=== PATIENT | female | born 1995 | race Caucasian/White ===

== ENCOUNTER 2021-02-23 10:22 | Outpatient (REF) | payer OTHER, SELFPAY ==
[2021-02-23 12:08] LABS: MANUAL DIFF FLAG NO
[2021-02-23 12:16] LABS: Basophils Percent Auto 0.2 % (0-2); Eosinophils Absolute Auto 0.1 X10*3/uL (0.0-0.4); Eosinophils Percent Auto 0.6 % (0-4); Hematocrit 41.5 % (37.0-47.0); Hemoglobin 14.3 g/dl (12.0-16.0); Imm Gran Abs Auto 0.08 X10*3/uL (0.00-0.03); Imm Gran Pct Auto 0.6 % (0.0-0.4); Lymphocytes Absolute Auto 3.4 X10*3/uL (1.2-4.9); Lymphocytes Percent Auto 24.8 % (20-40); Mean Corpuscular HGB Conc 34.5 g/dl (31.0-35.0); Mean Corpuscular Hemoglobin 32.6 pg (27.0-33.0); Mean Corpuscular Volume 94.7 fL (80.0-98.0); Mean Platelet Volume 9.2 fL (9.4-12.3); Monocytes Percent Auto 7.2 % (2-11); Neutrophils Absolute Auto 9.03 x10*3/uL (2.0-8.3); Neutrophils Percent Auto 66.6 % (45-73); Platelet Count 438 X10*3/uL (160-400); Red Blood Count 4.38 X10*6/uL (4.20-5.50); Red Cell Distribution Width 12.1 % (11.0-16.0); White Blood Count 13.6 X10*3/uL (4.8-10.8)
[2021-02-23 12:41] LABS: Alanine Aminotransferase 10 U/L (0-31); Albumin Level 4.5 g/dL (3.5-5.0); Alkaline Phosphatase 58 U/L (39-117); Anion Gap 11 (12-20); Aspartate Amino Transferase 17 U/L (5-31); Bilirubin Total 0.3 mg/dL (0.0-1.0); Blood Urea Nitrogen 6 mg/dL (9-16); Calcium 9.4 mg/dL (8.4-10.2); Carbon Dioxide 25 mmol/L (22-29); Chloride 106 mmol/L (96-108); Cholesterol 148 mg/dL; Estimated Glomerular Filt Rate > 60; Glucose Fasting 89 mg/dL (60-99); HDL Cholesterol 51 mg/dL; LDL Cholesterol Calculated 85 mg/dl; Potassium 3.9 mmol/L (3.3-5.1); Sodium 138 mmol/L (135-145); Total Protein 7.2 g/dL (6.5-8.0); Triglycerides 61 mg/dL
[2021-02-23 13:02] LABS: Vitamin D 25-OH Total 6.3 ng/mL (>30)
[2021-02-23 13:03] LABS: TSH reflex Free T4 (Prenatal) 0.38 uIU/mL (0.32-4.0)
[2021-02-23 13:34] LABS: Folate 15.7 ng/mL (> or = 4.0); Vitamin B12 581 pg/mL (200-900)
[2021-02-23 13:51] LABS: Free T4 (Free Thyroxine) 1.18 ng/dL (0.71-1.85)
== END 2021-02-23 10:23 | disposition home or self-care (01) ==
LOC: HO.LAB 10:22
PROVIDERS: PCP Internal Medicine; Visit Provider Advanced Practice Midwife
DX: O26.891 Other specified pregnancy related conditions, first trimester (principal); F41.8 Other specified anxiety disorders; R00.0 Tachycardia, unspecified; R10.13 Epigastric pain; R63.6 Underweight; I34.1 Nonrheumatic mitral (valve) prolapse; R00.2 Palpitations
CPT/HCPCS: 36415; 80053; 80061; 82306; 82607; 82746; 84439; 85025; 99202

== ENCOUNTER → 2021-02-27 09:56 | Outpatient (BNVA) | payer OTHER, SELFPAY | PROVIDERS: PCP Internal Medicine; Visit Provider Advanced Practice Midwife ==

== ENCOUNTER → 2021-03-27 09:54 | Outpatient (BNVA) | payer OTHER, SELFPAY | PROVIDERS: PCP Internal Medicine; Visit Provider Advanced Practice Midwife | DX: R00.2 Palpitations (principal); R00.0 Tachycardia, unspecified; R29.91 Unspecified symptoms and signs involving the musculoskeletal system; Z34.90 Encounter for supervision of normal pregnancy, unspecified, unspecified trimester | CPT/HCPCS: 93005; 99202; 99212 ==

== ENCOUNTER → 2021-03-29 10:34 | Outpatient (REF) | payer OTHER, SELFPAY ==
--- NOTE | 2021-03-29 10:37 | CA_ITS ---
Transthoracic Echocardiogram Patient (Last, First, Middle): Elodia Roberts Y Gender: Female Date of : 1995 Age: 25 Procedure Date: 03/29/2021 Procedure Type: Transthoracic Echocardiogram Location: OP Height: 157.48 cm Weight: 47.17 kg BSA: 1.45 m2 Heart Rate: bpm BP: 120 / 80 mmHg Molding Machine Tender: ROBSON Juarez MD: Jose Carlos Pearson MD Plaster Patternmaker: Humphrey Almeida MD Symptoms: I34.1 - Nonrheumatic mitral (valve) prolapse Study Quality: Good ECG Rhythm: Sinus Conclusions: - 1. Normal biventricular systolic function 2. Bileaflet mitral valve prolapse of moderate degree with trace mitral regurgitation 3. Normal RV systolic pressure 4. No pericardial effusion Findings Left Ventricle Normal left ventricular size, thickness, and systolic function. The visually estimated ejection fraction is between 60-65%. Spectral Doppler is indicative of a normal filling pattern. Right Ventricle Normal right ventricular cavity size and systolic function. Atria Both atria are normal in size. There is no evidence of interatrial shunt. Aortic Valve Normal aortic valve structure and function. There is no aortic valve stenosis. There is no aortic valve regurgitation. 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 There is mild anterior and posterior mitral leaflet thickening. There is moderate anterior mitral leaflet prolapse and moderate posterior mitral leaflet prolapse. There is trace mitral valve regurgitation. There is no mitral valve stenosis. Pulmonic Valve The pulmonic valve is likely normal. There is trace pulmonic valve regurgitation. Tricuspid Valve Normal tricuspid valve structure. There is trace tricuspid valve regurgitation. The right ventricular systolic pressure is normal. The right ventricular systolic pressure is 26 mmHg. Normal right atrial pressure. There is no evidence of pulmonary hypertension. Great Vessels All visible segments of the aorta are normal in size. The pulmonary artery was not well visualized. Venous The inferior vena cava is normal in size and collapses greater than 50% with inspiration. Pericardium/Pleural There is no evidence of pericardial effusion. Prior Study Comparison No significant change compared to prior study dated: 02/17/2019. Measurements 2D Linear Measurements IVSd: 0.70 0.6-0.9/0.6-1.0 cm LVIDd: 4.85 3.9-5.3/4.2-5.9 cm LVIDd Index: 3.34 2.4-3.2/2.2-3.1 cm/m2 LVIDs: 3.01 2.0-3.6 cm LVPWd: 0.70 0.7-1.1 cm Ao Root: 2.90 2.1-3.5 cm LA Diam: 3.40 2.7-3.8/3.0-4.0 cm LAIDs Index: 2.34 1.5-2.3 cm/m2 LV Mass: 134.77 67-162/88-224 g LV Mass Index: 92.95 43-95/49-115 g/m2 LVOT Diam: 2.10 3.0+(-)1.3 cm 2D Systolic Function EF 4C: 60.30 >55% EF 2C: 51.30 >55% EF BiP: 55.60 >55% Mitral Valve E'Lateral: 9.68 E'Medial: 8.81 Aortic Valve AoV Pk Heri: 1.18 AoV Mn Heri: 0.89 AoV VTI: 0.27 AoV Pk Grad: 6.00 Aov Mn Grad: 3.00 PINKY Cont.VTI: 2.14 LVOT LVOT Pk Heri: 0.82 LVOT Mn Heri: 0.57 LVOT VTI: 0.17 LVOT Pk Grad: 3.00 LVOT Mn Grad: 1.00 LVOT Diam: 2.10 LVOT Area: 3.46 Diastolic Function E'Medial: 8.81 E' Laterial: 9.68 Right Ventricle TAPSE (mm): 1.57 TVS' Heri: 9.25 Tricuspid Valve TR Pk Heri: 2.39 TR Pk Grad: 23.00 RA Press: 3.00 RVSP: 26.00 Great Vessels Aorta Ao Root-2D: 2.90 2.0-3.7 cm Ao Asc: 2.70 2.1-3.4 cm Ao Arch: 1.70 Updated in Other Vendor System with Status of Final Humphrey Almeida MD electronically signed on 03/29/2021 1:59:27 PM with status of Final
== END ==
LOC: HO.CARD 10:34
PROVIDERS: PCP Internal Medicine; Visit Provider Advanced Practice Midwife
DX: I34.1 Nonrheumatic mitral (valve) prolapse (principal)
CPT/HCPCS: 93306

== ENCOUNTER → 2021-04-06 08:44 | Outpatient (BNVA) | payer OTHER, SELFPAY | PROVIDERS: PCP Internal Medicine; Visit Provider Advanced Practice Midwife ==

== ENCOUNTER → 2021-04-18 10:57 | Outpatient (REF) | payer OTHER, SELFPAY ==
--- NOTE | 2021-04-18 11:01 | HM_ITS ---
Total monitoring time 2 days, 23 hours. Underlying rhythm is sinus. Minimum heart rate 58/Min. Maximum 160/Min. Average 93/Min. About 33% of the time, right greater than 100/Min. No atrial fibrillation or flutter or AV blocks or pauses. Very rare supraventricular ectopy with minimal burden. Very rare ventricular ectopy with minimal burden; 2 couplets. Rapid/fast heartbeat noted by patient associated with sinus tachycardia. MTDD
== END ==
LOC: HO.CARD 10:57
PROVIDERS: Visit Provider Internal Medicine
DX: R00.2 Palpitations (principal)
CPT/HCPCS: 93242

== ENCOUNTER → 2021-05-15 14:16 | Outpatient (BNVA) | payer OTHER, SELFPAY | PROVIDERS: PCP Internal Medicine; Referring Provider Internal Medicine; Visit Provider Internal Medicine | DX: R00.0 Tachycardia, unspecified (principal); R29.91 Unspecified symptoms and signs involving the musculoskeletal system; I34.1 Nonrheumatic mitral (valve) prolapse; Z33.1 Pregnant state, incidental | CPT/HCPCS: 93005; 99212 ==

== ENCOUNTER → 2021-08-15 12:47 | Outpatient (BNVA) | payer OTHER, SELFPAY | PROVIDERS: PCP Internal Medicine; Referring Provider Internal Medicine; Visit Provider Internal Medicine | DX: O99.413 Diseases of the circulatory system complicating pregnancy, third trimester (principal); I34.1 Nonrheumatic mitral (valve) prolapse; O26.893 Other specified pregnancy related conditions, third trimester; R29.91 Unspecified symptoms and signs involving the musculoskeletal system; R00.0 Tachycardia, unspecified; Z3A.00 Weeks of gestation of pregnancy not specified | CPT/HCPCS: 93005; 99212 ==

== ENCOUNTER → 2022-10-19 13:55 | Outpatient (BNVA) | payer OTHER, SELFPAY | PROVIDERS: PCP Internal Medicine; Visit Provider Nurse Practitioner Family | DX: Z01.810 Encounter for preprocedural cardiovascular examination (principal); I34.1 Nonrheumatic mitral (valve) prolapse; I34.0 Nonrheumatic mitral (valve) insufficiency; I49.3 Ventricular premature depolarization; Q67.6 Pectus excavatum; R00.0 Tachycardia, unspecified; E55.9 Vitamin D deficiency, unspecified | CPT/HCPCS: 93005; 99212 ==

== ENCOUNTER → 2022-10-22 12:54 | Outpatient (REF) | payer OTHER, SELFPAY | LOC: HO.CARD 12:54 | PROVIDERS: PCP Internal Medicine; Visit Provider Nurse Practitioner Family | DX: Z01.810 Encounter for preprocedural cardiovascular examination (principal); I34.0 Nonrheumatic mitral (valve) insufficiency; I34.1 Nonrheumatic mitral (valve) prolapse | CPT/HCPCS: 93306 ==

== ENCOUNTER 2023-12-25 14:09 | Outpatient (AMB) | payer OTHER, SELFPAY ==
[2023-12-25 14:10] VITALS: BP 100/62; PULSE 83; BMI 21.9
--- NOTE | 2023-12-25 14:10 | MHC.OFFVIS ---
Vital Signs 12/25/23 14:10 Height 5 ft 2 in Weight 119 lb 7.849 oz BMI 21.9 BP 100/62 Blood Pressure Location Lt brachial Position Sitting Pulse 83 Intake Visit Reasons: 1 year follow-up Fermenter Required: No Accompanied by: Self / Same As Patient Allergies No Known Allergies [No Known Allergies*] Allergy (Verified 10/19/22 13:59) Medication List - Last Reconciled 12/25/23 by Jose Carlos Perason MD etonogestrel (Nexplanon) subdermal DAILY hydroxyzine HCl 25 mg PO BEDTIME PNV,calcium 88-toyo-ybyme acid 27 mg iron- 1 mg ( Vitamins Plus Low Iron) 1 tab PO DAILY prazosin 1 mg PO BEDTIME pyridoxine (vitamin B6) (Vitamin B-6) 25 mg PO TID PRN trazodone 100 mg PO BEDTIME PRN venlafaxine ER 37.5 mg PO DAILY Ventolin HFA 90 mcg/actuation (albuterol sulfate) 2 puffs inhalation Q6H PRN NS HPI Comments Details: Elodia returns for follow-up. In the past, she has been seen in the setting of tachycardia and she was also recommend that time. However, per history from patient, she has had rapid heartbeats for more than a decade. Otherwise, history of hypermobile joints and frequent knee dislocations, shoulder dislocation extra. She also has pectus excavatum. She was in fact sent to the Genetics Clinic at [facility] but it seems that testing was essentially unremarkable. Otherwise, patient states she generally doing fine. Slight dizziness off and on but she is also having lowish blood pressures and also taking many medications that can make her feel dizzy. With regard to family history, she does not know much. Brother has schizophrenia. She is mostly home these days taking care of her child. 2 years old and doing okay. [facility] Medical History Depression with anxiety Epigastric pain MVP (mitral valve prolapse) Tachycardia Underweight Vitamin D deficiency Surgical History No pertinent past surgical history Family History Father Heroin addiction Mother Heroin addiction Social History Alcohol intake: never Patient Tobacco Use Status: Never used Tobacco Substance Use Type: Marijuana Sexual orientation: Straight/Heterosexual Gender identity: Female Review of Systems Const Denies chills, Denies fatigue, Denies fever(s), Denies weight gain and Denies weight loss ENT Denies dizziness Card Denies chest pain, Denies leg edema, Denies lightheadedness, Denies palpitations, Reports dyspnea on exertion, Denies orthopnea and Denies other Resp Denies cough and Reports dyspnea on exertion GI Denies hematochezia and Denies change in stool character Musc Denies abnormal gait, Denies muscle weakness, Denies numbness, Denies radiating pain into limb and Denies tingling Neuro Denies abnormal gait, Denies dizziness, Denies numbness and Denies tingling Endo Denies fatigue and Denies palpitations Physical Exam Vital Signs: Last Vital Signs Pulse 83 12/25/23 14:10 BP 100/62 12/25/23 14:10 BMI result Body Mass Index 21.9 Const General: comfortable and no acute distress Orientation/consciousness: patient oriented x3 HEENT Other: Unremarkable Head: Yes normal to inspection Neck Neck: Yes normal visual inspection Chest Chest palpation & inspection: normal inspection of the chest Resp Auscultation: clear to auscultation bilaterally Cardio Palpation: normal PMI Heart sounds: S1 normal heart sound present, S2 normal heart sound present, no gallops, no murmurs and no rubs GI Palpation (GI): Soft to palpation Back/Spine/Pelvis Other: unremarkable Skin General skin exam: no rashes or lesions noted Neuro General: patient oriented x3 Extrem General: Yes normal to inspection Psych Mental Status: mental status grossly normal Office Procedures EKG Details: EKG with underlying sinus rhythm at 83/Min; left atrial enlargement; rightward axis; no significant ST-[place] 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 Per last echocardiogram in 2022, low normal LVEF, 55%; moderate anterior and posterior mitral leaflet prolapse with trace regurgitation. Normal ascending aortic size. Previous Holter shows underlying sinus tachycardia with an average rate of 93/Min. She was also at that time. With regard to the mitral valve prolapse itself, no specific management for now as she has no significant regurgitation. We can follow that up on echocardiogram. No specific management for the sinus tachycardia either. Today's heart rate in fact seems to be well in the normal range. With regard to question of Jannette-Danlos or other forms of connective tissue disease like Marfan, we can refer her to [facility] in [place] but she could not go there because of lack of transport. She still has the same problem. Any case, we also referred her to Genetics in [facility] and based on testing, no specific gene is identified. Otherwise, reassurance and we will follow her up in 1 year. She can call us with any concerns in the interim. She agrees. Total time spent including review of data, counseling, documentation, coordination of care-32 minutes. Orders: Orders CA echo transthoracic complete 1 Year I34.0 - Nonrheumatic mitral (valve) insufficiency Coding Level of Care Code Est Pt Level 4 (68416) Diagnoses Marfanoid habitus R29.91 Sinus tachycardia R00.0 MVP (mitral valve prolapse) I34.1 CPT Codes EKG - CPT: 31485-[id number], Complete ([id number])
== END 2023-12-25 14:36 | disposition home or self-care (01) ==
PROVIDERS: PCP Internal Medicine; Visit Provider Internal Medicine
DX: R29.91 Unspecified symptoms and signs involving the musculoskeletal system (principal); R00.0 Tachycardia, unspecified; I34.1 Nonrheumatic mitral (valve) prolapse
CPT/HCPCS: 93010; 99214

== ENCOUNTER → 2023-12-25 14:09 | Outpatient (BNVA) | payer OTHER, SELFPAY | PROVIDERS: PCP Internal Medicine; Visit Provider Internal Medicine | DX: R29.91 Unspecified symptoms and signs involving the musculoskeletal system (principal); R00.0 Tachycardia, unspecified; I34.1 Nonrheumatic mitral (valve) prolapse | CPT/HCPCS: 93005; 99212 ==

== ENCOUNTER 2024-03-16 11:38 | Outpatient (AMB) | payer OTHER, SELFPAY ==
--- NOTE | 2024-03-16 12:33 | MHC.PC.OV ---
Vital Signs 03/16/24 12:34 Height 5 ft 2 in Weight 125 lb BMI 22.9 BP 100/60 Blood Pressure Location Lt brachial Position Sitting Pulse 91 Pulse Source Pulse Oximeter Pulse Oximetry (%) 99 Oxygen Delivery Method Room Air Intake Visit Reasons: Asthma/ chest congestion Intake Note: Pt is here today c/o asthma, request refill on her inhaler Allergies No Known Allergies [No Known Allergies*] Allergy (Verified 03/16/24 12:45) Medication List - Last Reconciled 03/16/24 by Nery Reid MD aripiprazole 5 mg PO DAILY clonidine HCl 0.1 mg PO BID etonogestrel (Nexplanon) subdermal DAILY trazodone 100 mg PO BEDTIME PRN Ventolin HFA 90 mcg/actuation (albuterol sulfate) 2 puffs inhalation Q6H PRN NS Tobacco use date assessed: 03/16/24 Dental Screening Dental Screen Date: 03/16/24 Did you have a dental visit in the last 12 months?: Yes Did you have a dental problem in the last 6 months where you did not have access to dental care?: Yes Was dental information given to patient?: Patient has dentist HPI Asthma/ chest congestion HPI Details 28-year-old lady here today complaining of cough occasionally productive of white phlegm accompanied by wheezing which has been present now for the last several days. Patient has history of mild intermittent asthma, ran out of her albuterol inhaler several days ago, requests refill. Reports occasional pain on deep breathing, which she attributes to her chest wall deformity. She has also been having recurrent low back pain, worse after giving . Has taken [id number]-kwt-srmsbhy NSAIDs and Tylenol which affords only temporary relief. [facility] Medical History (Updated 03/16/24 @ 13:05 by Nery Reid MD) Chronic low back pain Pectus excavatum Vitamin D deficiency Depression with anxiety MVP (mitral valve prolapse) Surgical History No pertinent past surgical history Family History Father Heroin addiction Substance use disorder Mother Heroin addiction Substance use disorder Social History Housing: House Alcohol intake: never Patient Tobacco Use Status: Never used Tobacco e-Cigarette/Vaping Use: Never Used Substance Use Type: Marijuana service: No Current occupational status: unemployed Sexual orientation: Straight/Heterosexual Gender identity: Female Cognitive needs: No Hearing needs: No Vision needs: Yes Questionnaire Thrive Questionnaire Date Thrive assessed: 02/27/24 I am a: Patient What is your living situation today?: I have a steady place to live Within the past 12 months, did the food you bought not last and you didn't have the money to get more?: Never true Within the past 12 months, did you worry whether your food would run out before you got money to buy more?: Never true Do you have trouble paying for medicines?: No Do you have trouble getting transportation to medical appointments?: No Do you have trouble paying your heating and electricity bill?: No Do you have trouble taking care of your child, family member or friend?: No Do you have trouble with day-to-day activities such as bathing, preparing meals, shopping, managing finances, etc.?: No Are you currently unemployed and looking for a job?: I choose not to answer this question Are you interested in more education?: I choose not to answer this question Please select the resources that you would like help with: None Currently or been in a relationship where the following occur: No concerns reported THRIVE Score: 0 ACT Questionnaire In the past 4 weeks, how much of the time did your asthma keep you from getting as much done at work, school or at home?: A little of the time During the past 4 weeks, how often have you had shortness of breath?: 1-2 times a week During the past 4 weeks, how often did your asthma symptoms wake you up at night or earlier than usual in the morning?: Once or twice per week During the past 4 weeks, how often have you had to use your rescue inhaler or nebulizer medication?: 2-3 times a week How would you rate your asthma control during the past 4 weeks?: Somewhat controlled ACT Interpretation: Positive Score: 18 Review of Systems Const Denies chills, Denies fatigue, Denies fever(s), Denies headache(s), Denies lethargy and Denies poor appetite ENT Denies facial pain, Denies headache(s), Denies nasal congestion, Denies post nasal drip, Denies sinus pain and Denies sore throat Card Denies chest pain, Denies lightheadedness, Denies palpitations, Reports dyspnea on exertion and Denies orthopnea Resp Reports as per HPI, Denies pain on inspiration and Reports dyspnea on exertion GI Reports no additional complaints Musc Reports as per HPI, Denies numbness, Denies radiating pain into limb and Denies stiffness Neuro Denies headache(s) and Denies numbness Endo Denies fatigue and Denies palpitations Aller/Immun Reports no additional complaints Physical exam (Primary Care) Vital Signs: Last Vital Signs Pulse 91 03/16/24 12:34 BP 100/60 03/16/24 12:34 Pulse Ox 99 03/16/24 12:34 Oxygen Delivery Method Room Air 03/16/24 12:34 BMI result Body Mass Index 22.9 Tobacco/Smoking Status: Tobacco use Status Tobacco use date assessed 03/16/24 03/16/24 12:36 Patient Tobacco Use Status Never used Tobacco 03/16/24 12:36 e-Cigarette/Vaping Use Never Used 03/16/24 12:36 Thrive Assessment: Date of Thrive Assessment Date Thrive assessed 02/27/24 03/16/24 12:36 Currently or been in a relationship where the following occur: No concerns reported Const General: comfortable, no acute distress and alert Orientation/consciousness: patient oriented x3 HENMT Ears: external ears normal, TM's normal bilaterally and EAC's normal General nose exam: Normal external nose present and No nasal discharge present Mouth: Normal oral and palatal mucosa present, oropharynx normal and moist mucous membranes Eyes General: appearance normal, both eyes and all related structures Neck Neck: Yes full ROM, Yes no lymphadenopathy and Yes supple Chest Chest palpation & inspection: abnormal inspection of the chest (Pectus excavatum) Resp Effort & Inspection: normal respiratory effort and able to speak in complete sentences Auscultation: clear to auscultation bilaterally Cardio Rate: regular rate Rhythm: regular rhythm Heart sounds: S1 normal heart sound present and S2 normal heart sound present GI Palpation (GI): Soft to palpation, nontender and no masses Auscultation: normal bowel sounds Back/Spine/Pelvis Thoracic/Lumbar Spine: straight leg raise negative bilaterally and paraspinal muscle tenderness bilaterally in the lower lumbar Skin General skin exam: no rashes or lesions noted Neuro General: patient oriented x3, gait normal, tone normal, moves all extremities, Normal light touch and pain sensation and no focal motor deficits Cranial nerves: Yes CN's II-XII intact bilaterally Cognition (Neuro): normal cognition Extrem General: Yes full ROM, Yes no joint enlargement, Yes no clubbing, cyanosis or edema and Yes no calf tenderness Coding Level of Care Code Est Pt Level 4 (37586) Diagnoses Pectus excavatum Q67.6 Difficulty breathing R06.89 Persistent cough for 3 weeks or longer R05.3 Chronic bilateral low back pain without sciatica M54.50; G89.29 Back pain laterality: bilateral Sciatica presence: without sciatica Additional Codes Asthma Control Questionnaire - ACT Interpretation: Positive ([id number]) Assessment & Plan Assessment & Plan (1) Pectus excavatum: Code(s): Q67.6 - Pectus excavatum Category: Medical Plan: Complains of difficulty with deep breathing, with occasional sharp pain on inspiration. Ordered pulmonary function test see if there is any restrictive component caused by her chest wall defect (2) Difficulty breathing: Code(s): R06.89 - Other abnormalities of breathing Plan: PFT ordered (3) Persistent cough for 3 weeks or longer: Code(s): R05.3 - Chronic cough Plan: Refill sent on her albuterol inhaler to use as directed. Call if no improvement of symptoms after 3 days (4) Chronic low back pain: Code(s): M54.50 - Low back pain, unspecified; G89.29 - Other chronic pain Category: Medical Qualifiers: Back pain laterality: bilateral Sciatica presence: without sciatica Qualified Code(s): M54.50 - Low back pain, unspecified; G89.29 - Other chronic pain Plan: Referred for physical therapy Orders: Orders PFT pulmonary function test 03/16/24 Q67.6 - Pectus excavatum, R05.3 - Chronic cough, R06.89 - Other abnormalities of breathing PT Evaluation and Treatment 03/16/24 G89.29 - Other chronic pain, M54.50 - Low back pain, unspecified Medications: New albuterol sulfate 90 mcg/actuation 2 puffs inhalation Q6H PRN 8.5 grams 0RF shortness of breath or wheezing
[2024-03-16 12:34] VITALS: BP 100/60; PULSE 91; O2SAT 99; BMI 22.9
== END 2024-03-16 13:04 | disposition home or self-care (01) ==
PROVIDERS: PCP Internal Medicine; Visit Provider Internal Medicine
DX: Q67.6 Pectus excavatum (principal); R06.89 Other abnormalities of breathing; R05.3 Chronic cough; M54.50 Low back pain, unspecified; G89.29 Other chronic pain

== ENCOUNTER → 2024-03-16 11:38 | Outpatient (BNVA) | payer OTHER, SELFPAY | PROVIDERS: PCP Internal Medicine; Visit Provider Internal Medicine | DX: Q67.6 Pectus excavatum (principal); R06.89 Other abnormalities of breathing; R05.3 Chronic cough; M54.50 Low back pain, unspecified; G89.29 Other chronic pain | CPT/HCPCS: 96160; 99212 ==

== ENCOUNTER 2024-04-28 13:55 | Outpatient (RCR) | payer OTHER, SELFPAY ==
--- NOTE | 2024-04-28 14:43 | MHC.PT.EP ---
[facility] [place] [facility] [place] [facility] [place] Office [address] [place] [address] [phone] F: [phone] F: [phone] F: [phone] F: [phone] Physical Therapy Plan of Care Date of Evaluation: 04/28/24 Date of Surgery: n/a Diagnosis: low back pain Assessment: Patient is a 28 year old female presenting to PT with complaints of pain in her low back. Pt reports onset of pain began about 2 years ago shortly after having her daughter. She presents today with impairments in pain, ROM, hip strength, core strength, posture. 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 Pt expresses group home goal of reducing pain, and is motivated to work towards this in PT. Clinical presentation today is most consistent with signs and sx associated with low back pain and pt will benefit from skilled PT 2 week x 4 weeks to address the following problems and impairments noted upon evaluation: pain, ROM, hip strength, core strength, posture. These problems limit the patient with the following functional activities: ambulating, stair negotiation, lifting, ADLs. The prescribed treatment plan of care is medically necessary. Co-morbidities of mitral valve prolapse, depression, anxiety were identified and taken into considerations of plan of care. Pt was educated on HEP, role of PT, prognosis, POC. Frequency and Duration: The patient will be seen 2 x week x 4 weeks Short Term Goals: Pt will demonstrate no pain at rest in 2 weeks. Pt will demonstrate improved hip MMT strength by 1/3 grade in 2 weeks. Pt will demonstrate ability to move through available lumbar ROM with out pain in 2 weeks. Rental Coordinator Goals: Pt will demonstrate improved Peña score by 10% in 4 weeks for improved functional mobility. Pt will demonstrate ability to ambulate community distances with min to no pain in 4 weeks for improved access to her community. Pt will demonstrate ability to negotiate stairs with min to no pain in 4 weeks for return to PLOF. Treatment Plan: Modalities to reduce pain, spasms and effusion. Manual therapy to restore motion and function. Therapeutic exercise to improve strength and flexibility. Neuromuscular re-education for posture and balance. Therapeutic activities to return to functional activities of daily living. Electronically signed by: Pattie Peterson, PT, DPT, ATC Please sign and return to therapist. Thank you for your referral.
--- NOTE | 2024-05-18 13:16 | MHC.PT.DC ---
[facility] [place] [facility] [place] Office [place] Office [address] [place] [address] [phone] F: [phone] F: [phone] F: [phone] F: [phone] Physical Therapy Discharge Report Diagnosis: low back pain Date of Surgery: n/a Date of Evaluation: 04/28/24 Date of Discharge: 05/18/24 Treatments to Date: 1 Cancellations to Date: 0 No Shows to Date: 3 Discharge Status: Visit Non-compliance Discharge Summary: Pt has failed to comply with [facility] attendance policy and no showed 3 appointments since eval. Pt to be d/c per attendance policy. Electronically signed by: Pattie Peterson PT, DPT, ATC Please sign and return to therapist. Thank you for your referral.
== END 2024-05-18 13:17 | disposition home or self-care (01) ==
LOC: HO.PTCHIC 13:55
PROVIDERS: PCP Internal Medicine; Visit Provider Internal Medicine
DX: M54.50 Low back pain, unspecified (principal); G89.29 Other chronic pain
CPT/HCPCS: 97110; 97161

== ENCOUNTER 2024-06-17 11:13 | Outpatient (REF) | payer OTHER, SELFPAY ==
--- NOTE | 2024-06-17 11:32 | PFT_ITS ---
Flows: FEV1: 101 % of predicted at 3.05 L FVC: 106 % of predicted at 3.74 L FEV1/FVC: 82 % Bronchodilator response: Present Volumes: Total lung capacity: 100 % of predicted at 4.78 L Residual volume: 97 % of predicted at 1.04 L Slow vital capacity: 102 % of predicted at 3.74 L Expiratory reserve volume: 99 % of predicted at 1.17 L Diffusion capacity: Normal Impression: No obstructive or restrictive ventilatory defect. Positive bronchodilator response. MTDD
--- OUTSIDE RECORDS SUMMARY | 2024-06-17 14:03 | XMS_ITS | Patient Health Record ---
Author Organization [facility] Address [address], [place] [id number] Care Team Providers Care Performance Improvement Analyst Name Role Phone No, PCP Primary Care Provider Jennie Smith Unavailable [phone] Allergies No Known Allergies Reason For Referral No Information Medications Medication SIG (Take, Route, Fr equency, Duration) Notes Start Date End Date Status escitalopram Active DHA Active Clinpro 5000 1.1% 1 lai applied topica lly once a day (at bedtime) for 30 day(s) 10/18/2021 U nknown Plan Of Treatment No Information Insurance Providers Payer Name Payer Address Payer Phone Subscriber Number Group Number Insured Name Patient Relationship to Insured Coverage Start Date Coverage End Date [facility] [address] [place] [phone] [id number] Elodia oRberts Self - patient is the insured 2 Medical (General) History Medical History History ICD Code Anxiety / Dep / PTSD Tachycardia
== END 2024-06-17 11:14 | disposition home or self-care (01) ==
LOC: HO.RESP 11:13
PROVIDERS: PCP Internal Medicine; Visit Provider Internal Medicine
DX: R05.3 Chronic cough (principal); R06.89 Other abnormalities of breathing; Q67.6 Pectus excavatum
CPT/HCPCS: 94010; 94640; 94727; 94729

== ENCOUNTER → 2024-06-17 11:32 | Outpatient (BNV) | payer OTHER, SELFPAY | PROVIDERS: PCP Internal Medicine; Visit Provider Internal Medicine Pulmonary Disease | DX: R05.3 Chronic cough (principal); R06.89 Other abnormalities of breathing | CPT/HCPCS: 94060; 94727; 94729 ==

== ENCOUNTER → 2024-12-23 14:50 | Outpatient (REF) | payer OTHER, SELFPAY ==
--- NOTE | 2024-12-23 14:52 | CA_ITS ---
Transthoracic Echocardiogram Patient (Last, First, Middle): Elodia Roberts Y Gender: F Date of : 1995 Age: 29 Procedure Date: 12/23/2024 Procedure Type: Transthoracic Echocardiogram Location: OP Height: 157.48 cm Weight: 56.7 kg BSA: 1.57 m2 Heart Rate: 80 bpm BP: 100 / 60 mmHg Preschool Associate Teacher: SB Referring MD: Jose Carlos Pearson MD Manager [place]: Humphrey Almeida MD Symptoms: I34.0 - Nonrheumatic mitral (valve) insufficiency Study Quality: Adequate ECG Rhythm: Sinus Conclusions: - Bileaflet mitral valve prolapse with trace mitral regurgitation otherwise normal study Findings Left Ventricle Normal left ventricular size, thickness, and systolic function. The visually estimated ejection fraction is between 60-65%. Spectral Doppler is indicative of a normal filling pattern. Right Ventricle Normal right ventricular cavity size and systolic function. Atria Both atria are normal in size. There is no evidence of interatrial shunt. Aortic Valve Normal aortic valve structure and function. There is no aortic valve stenosis. There is no aortic valve regurgitation. 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 There is mild anterior and posterior mitral leaflet thickening. There is mild anterior mitral leaflet prolapse and mild posterior mitral leaflet prolapse. There is trace mitral valve regurgitation. There is no mitral valve stenosis. Pulmonic Valve The pulmonic valve was not well visualized. Tricuspid Valve Normal tricuspid valve structure. There is trace tricuspid valve regurgitation. The right ventricular systolic pressure is normal. The right ventricular systolic pressure is 24 mmHg. Normal right atrial pressure. There is no evidence of pulmonary hypertension. Great Vessels All visible segments of the aorta are normal in size. The pulmonary artery was not well visualized. Venous The inferior vena cava is normal in size and collapses greater than 50% with inspiration. Pericardium/Pleural There is no evidence of pericardial effusion. Prior Study Comparison No significant change compared to prior study dated: 10/22/2022. Measurements 2D Linear Measurements IVSd: 0.64 0.6-0.9/0.6-1.0 cm LVIDd: 4.78 3.9-5.3/4.2-5.9 cm LVIDd Index: 3.04 2.4-3.2/2.2-3.1 cm/m2 LVIDs: 3.33 2.0-3.6 cm LVPWd: 0.72 0.7-1.1 cm LV Mass: 127.39 67-162/88-224 g LV Mass Index: 81.14 43-95/49-115 g/m2 LVOT Diam: 2.30 3.0+(-)1.3 cm Mitral Valve MV Pk E: 0.61 MV PK A: 0.54 MV Decel Time: 282.00 E/A: 1.10 E'Lateral: 8.70 E'Medial: 7.72 E/E' Med: 7.90 E/E' Lat: 7.00 PHT: 83.00 MVA PHT: 2.65 Decel [place]: 2.17 Aortic Valve AoV Pk Heri: 1.01 AoV Pk Grad: 4.00 PINKY: 3.38 LVOT LVOT Pk Heri: 0.85 LVOT Mn Heri: 0.65 LVOT VTI: 0.19 LVOT Pk Grad: 3.00 LVOT Mn Grad: 2.00 LVOT Diam: 2.30 LVOT Area: 4.15 Diastolic Function MV Pk E: 0.61 MV Pk A: 0.54 E/A: 1.10 E'Medial: 7.72 E/E' Med: 7.90 E' Laterial: 8.70 E/E' Lat: 7.00 Right Ventricle TAPSE (mm): 13.50 Tricuspid Valve TR Pk Heri: 2.29 TR Pk Grad: 21.00 RA Press: 3.00 RVSP: 24.00 Great Vessels Aorta Sinus of Valsalva: 3.00 2.0-3.5 cm Ao Asc: 2.20 2.1-3.4 cm Ao Arch: 2.40 Ao Desc: 1.40 Pulmonary Valve PV Pk Heri: 0.71 Peak PV Grad: 2.00 Updated in Other Vendor System with Status of Final Humphrey Almeida MD electronically signed on 12/24/2024 12:41:35 PM with status of Final
--- OUTSIDE RECORDS SUMMARY | 2024-12-23 17:06 | XMS_ITS | Patient Health Record ---
Author Organization [facility] Address [address] [place] [address] Care Team Providers Care Binding Cutter Synthetic Cloth Name Role Phone NO, PCP Primary Care Provider Allergies No Known Allergies Reason For Referral [...] Insured Coverage Start Date Coverage End Date [facility] Dental Program [address] [place] [phone] [id number] Elodia Roberts Self - patient is the insured 2 Medical (General) History Medical History History ICD Code Anxiety / Dep / PTSD Tachycardia
--- OUTSIDE RECORDS SUMMARY | 2024-12-23 17:06 | XMS_ITS | Clinical Summary ---
Author Organization [facility] Address [address] [place], [place] [id number] Phone Care Team Providers Care Flat Grinder Operator Name Role Phone Pcp, Unknown Primary Care Provider Unavailabl e Social History Tobacco Use Types Packs/Day Years Used Date Smoking Tobacco: Never Assessed Education Answer Date Recorded Are you interested in more education? Not on rolando e 08/18/2022 Are you concerned about learning? Not on file 08/18/2022 No 08/18/2022 No 08/18/2022 Digital Access Answer Date Recorded No 09/16/2022 No 09/16/2022 No 09/16/2022 Reliable internet access at home? Not on file 09/16/2022 Device with a working camera? Not on file Comments Unknown Sex and Gender Information Value Date Recorded Sex Assigned at Female 06/06/2021 2:08 PM EST Legal Sex Female 2:01 PM EST Gender Identity Female 06/06/2021 2:08 PM EST Sexual Orientation Straight 06/06/2021 2: 08 PM EST Plan of Treatment Health Maintenance Due Date Last Done Comments Adult Td,Tdap Booster 1996 DEPRESSION SCREENING 2008 SMOKING Hx and SMOKELESS TOB ACCO SCREENING 2009 HEPATITIS C SCREENING 2014 HIV ONE-TIME SCREENING (18-6 5 YEARS) 2014 PAP SMEAR 2017 COVID-19 VACCINE (2023-2 5 season) 2023 HEPATITIS A VACCINES Aged Out No long er eligible based on patient's age to complete this topic HIB VACCINES Aged Out No longer eligi ble based on patient's age to complete this topic MENINGOCOCCAL VACCINES (ACWY) Aged Out No longer eligible based on patient's age to complete this topic MENINGOCOCCAL VACCINES (B) Aged Out N o longer eligible based on patient's age to complete this topic PNEUMOCOCCAL VACCINES (0-49 years) Aged Out No longer eligible based on patient's age to complete this topic Medical Devices Not on file Insurance [place] [address] [place] [address] [place] [address] [place] [address] [place] [address] [place] [address] [place] [address] [place] [address] [place] [address] [place] [address] ACO Care Teams Flat Grinder Operator Relationship Specialty Start Date End Date Pcp, Unknown PCP - General 06/06/21 Additional Source Comments The information contained in this document represents components of the legal health record. It is not the complete legal health record.[facility]
== END ==
LOC: HO.CARD 14:50
PROVIDERS: PCP Internal Medicine; Visit Provider Internal Medicine
DX: I34.0 Nonrheumatic mitral (valve) insufficiency (principal)
CPT/HCPCS: 93306

== ENCOUNTER → 2024-12-23 14:52 | Outpatient (BNV) | payer OTHER, SELFPAY | PROVIDERS: PCP Internal Medicine; Visit Provider Internal Medicine Cardiovascular Disease | DX: I34.1 Nonrheumatic mitral (valve) prolapse (principal) | CPT/HCPCS: 93306 ==

== ENCOUNTER 2024-12-29 12:03 | Outpatient (AMB) | payer OTHER, SELFPAY ==
[2024-12-29 12:35] VITALS: BP 110/64; PULSE 77; BMI 26.0
--- NOTE | 2024-12-29 12:35 | A.OFFVIS_ITS ---
Vital Signs 12/29/24 12:35 Height 5 ft 2 in Weight 142 lb 6.698 oz BMI 26.0 BP 110/64 Blood Pressure Location Lt brachial Position Sitting Pulse 77 Pulse Source Monitor Intake Visit Reasons: 1 yr f/up echo Pipe Liner Required: No Accompanied by: Self / Same As Patient Allergies No Known Allergies (No Known Allergies*) Allergy (Verified 03/16/24 12:45) Medication List - Last Reconciled 12/29/24 by Jose Carlos Pearson MD aripiprazole 5 mg PO DAILY clonidine HCl 0.1 mg PO BID doxepin 25 mg PO BEDTIME etonogestrel (Nexplanon) subdermal DAILY prazosin 1 mg PO BEDTIME Ventolin HFA 90 mcg/actuation (albuterol sulfate) 2 puffs inhalation Q6H PRN NS HPI Comments Details: Elodia returns for follow-up. In the past, she has been seen in the setting of tachycardia and she was also that time. However, per history from patient, she has had rapid heartbeats for more than a decade. Otherwise, history of hypermobile joints and frequent knee dislocations, shoulder dislocation extra. She also has pectus excavatum. She was in fact sent to the [facility]etics Clinic at [facility] but it seems that testing was essentially unremarkab le. Since last seen, she is fine for the most part. She does get some shortness of breath with activity but she thinks it is because of her pectus excavatum. She also feels pains when she is lying in his sudden position and she again feels it is related to the pectus. With regard to family history, she does not know much. Brother has schizophrenia. [facility] Medical History Chronic low back pain Pectus excavatum Vitamin D deficiency Depression with anxiety MVP (mitral valve prolapse) Surgical History No pertinent past surgical history Family History Father Heroin addiction Substance use disorder Mother Heroin addiction Substance use disorder Social History Housing: House Alcohol intake: never Patient Tobacco Use Status: Never used Tobacco e-Cigarette/Vaping Use: Never Used Substance Use Type: Marijuana service: No Current occupational status: unemployed Sexual orientation: Straight/Heterosexual Gender identity: Female Cognitive needs: No Hearing needs: No Vision needs: Yes Review of Systems Const Denies chills, Denies fatigue, Denies fever(s), Denies frequent falls, Denies weakness, Denies weight gain and Denies weight loss ENT Denies dizziness Card Denies chest pain, Denies leg edema, Denies lightheadedness, Denies palpitations, Denies dyspnea and Denies dyspnea on exertion Resp Denies cough, Denies dyspnea and Denies dyspnea on exertion GI Denies hematochezia Musc Denies abnormal gait, Denies muscle weakness, Denies numbness, Denies radiating pain into limb and Denies tingling Neuro Denies abnormal gait, Denies dizziness, Denies frequent falls, Denies numbness, Denies tingling and Denies weakness Endo Denies fatigue and Denies palpitations Physical Exam Vital Signs: Last Vital Signs Pulse 77 12/29/24 12:35 BP 110/64 12/29/24 12:35 BMI result Body Mass Index 26.0 Const General: comfortable and no acute distress Orientation/consciousness: patient oriented x3 HEENT Other: Unremarkable Head: Yes normal to inspection Neck Neck: Yes normal visual inspection Chest Chest palpation & inspection: normal inspection of the chest Resp Auscultation: clear to auscultation bilaterally Cardio Palpation: normal PMI Heart sounds: S1 normal heart sound present, S2 normal heart sound present, no gallops, no murmurs and no rubs GI Palpation (GI): Soft to palpation Back/Spine/Pelvis Other: unremarkable Skin General skin exam: no rashes or lesions noted Neuro General: patient oriented x3 Extrem General: Yes normal to inspection Psych Mental Status: mental status grossly normal Office Procedures EKG Details: EKG with sinus rhythm at 77/Min; possible left atrial enlargement; rightward axis; [place]. 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 In the recent echocardiogram, preserved LVEF at 60-65%. Bileaflet mitral valve prolapse with trace regurgitation. Normal visualized thoracic aorta. Previous Holter shows underlying sinus tachycardia with an average rate of 93/Min. She was also at that time. With regard to the mitral valve prolapse itself, no specific management for now as she has no significant regurgitation. We can follow that up on echocardiogram. No specific management for the sinus tachycardia either. Today's heart rate in fact seems to be well in the normal range. With regard to question of Jannette-Danlos or other forms of connective tissue disease like Marfan, we had referred her to [facility] in [place] but she could not go there because of lack of transport. She still has the same problem. Any case, we also referred her to Genetics in [facility] and based on testing, no specific gene is identified. She wants the pectus excavatum fixed surgically and not clear what options are available. Total time spent including review of data, counseling, documentation, coordination of care-31 minutes. We will plan on follow-up in 3 years with another echocardiogram. Coding Level of Care Code Est Pt Level 4 (64510) Diagnoses Marfanoid habitus R29.91 MVP (mitral valve prolapse) I34.1 Sinus tachycardia R00.0 CPT Codes EKG - CPT: 57031-[id number], Complete ([id number])
--- OUTSIDE RECORDS SUMMARY | 2024-12-29 14:33 | XMS_ITS | Clinical Summary ---
Author Organization [facility] Address [address] [place], [place] [id number] Phone Care Team Providers Care Director Sales And Marketing Name Role Phone Pcp, Unknown Primary Care [...] (18-6 5 YEARS) 2014 PAP SMEAR 2017 INFLUENZA VACCINE (#1) 2024 COVID-19 VACCINE (2023-2 5 season) 2024 HEPATITIS A VACCINES Aged Out No long [...] topic Medical Devices Not on file [place] [address] [place] [address] [place] [address] [place] [address] [place] [address] [place] [address] [place] [address] [place] [address] [place] [address] ACO A[employer] ACO Care Teams Director Sales And Marketing Relationship Specialty Start Date End Date Pcp, Unknown PCP - General 06/06/21 Additional Source Comments The information contained in this document represents components of the legal health record. It is not the complete legal health record.[facility]
--- OUTSIDE RECORDS SUMMARY | 2024-12-29 14:33 | XMS_ITS | Patient Health Record ---
Author Organization [facility] Address [address] [place] [address] Care Team Providers Care Supervisor In Circuit Testing Name Role Phone NO, PCP Primary Care [...] Insured Coverage Start Date Coverage End Date [facility] Dental Program [address] [place] [phone] [id number] Elodia Roberts Self - patient is the insured 2 Medical (General) History Medical History History ICD Code Anxiety / Dep / PTSD Tachycardia
== END 2024-12-29 12:49 | disposition home or self-care (01) ==
LOC: HO.HCS 12:04
PROVIDERS: PCP Internal Medicine; Visit Provider Internal Medicine
DX: R29.91 Unspecified symptoms and signs involving the musculoskeletal system (principal); I34.1 Nonrheumatic mitral (valve) prolapse; R00.0 Tachycardia, unspecified
CPT/HCPCS: 93010; 99214

== ENCOUNTER → 2024-12-29 12:03 | Outpatient (BNVA) | payer OTHER, SELFPAY | PROVIDERS: PCP Internal Medicine; Visit Provider Internal Medicine | DX: R29.91 Unspecified symptoms and signs involving the musculoskeletal system (principal); I34.1 Nonrheumatic mitral (valve) prolapse; R00.0 Tachycardia, unspecified | CPT/HCPCS: 93005; 99212 ==